=== PATIENT | female | born 1980 | race Caucasian/White ===

== ENCOUNTER 2017-12-02 01:20 | Emergency (ER) | payer SELFPAY ==
[~2017-12-02] VITALS: Ht 67 cm; Wt 110.0 kg
[~2017-12-02 01:20] MED LIST: LEVOXYL0.125 MG PO; NO HOME MEDICATIONS; NORCO 325 MG-7.1 TAB PO
[2017-12-02 01:22] VITALS: TEMP 97.1
[2017-12-02] MEDS ORDERED: HCTZ12.5TAB PO (01:32)
[2017-12-02] MEDS ORDERED: LIPITOR 40MG TA40 MG PO (01:32)
[2017-12-02 02:11] LABS: BASO % 0.2 % (0.0-2.0); EOS # 0.1 (0.0-0.7); EOS % 0.9 % (0-4.0); GRAN # 11.3 (1.4-6.5); GRAN % 79.5 % (42.2-75.2); HEMATOCRIT 38.7 % (37.0-47.0); HEMOGLOBIN 13.6 g/dl (12.5-16.0); LYMPH # 1.9 (1.2-3.4); LYMPH % 13.6 % (20.0-51.0); MEAN CELL VOLUME 87 fl (80.0-100.0); MEAN CORPUSCULAR HEMOGLOBIN 31 pg (27.0-31.0); MEAN CORPUSCULAR HGB CONC 35 g/dl (33.0-37.0); MEAN PLATELET VOLUME 9.7 fl (7.4-10.4); MONO # 0.7 (0.1-0.6); PLATELET COUNT 299 K/mm3 (130-400); RED BLOOD COUNT 4.45 M/mm3 (4.10-5.30); REDCELL DISTRIBUTION WIDTH-CV 11.9 % (11.5-14.5)
[2017-12-02 02:21] LABS: ALANINE AMINOTRANSFERASE 38 U/L (9-52); ALBUMIN 4.1 gm/dL (3.5-5.0); ALKALINE PHOSPHATASE 71 U/L (50-136); ANION GAP 13 mmol/L (7-16); AST,SGOT 20 U/L (15-37); BILIRUBIN,TOTAL 0.4 mg/dL (0.0-1.0); BLOOD UREA NITROGEN 17 mg/dL (7-17); CALCIUM 9.5 mg/dL (8.4-10.2); CARBON DIOXIDE 24 mmol/L (22-30); CHLORIDE 103 mmol/L (98-107); CREATININE, serum 0.78 mg/dL (0.52-1.25); GLUCOSE 123 mg/dL (74-106); LIPASE 34 U/L (23-300); POTASSIUM 3.4 mmol/L (3.4-5.0); SODIUM 140 mmol/L (137-145); TOTAL PROTEIN 6.9 gm/dL (6.4-8.2)
[2017-12-02 02:22] LABS: COLLECTION METHOD CLEAN CATCH
[2017-12-02 02:33] LABS: MUCOUS Present /lpf; PH 6 (5-8); URINE APPEARANCE Hazy; URINE BACTERIA None Seen /hpf; URINE BILIRUBIN Negative (NEGATIVE); URINE BLOOD Negative (NEGATIVE); URINE COLOR Yellow; URINE GLUCOSE Negative (NEGATIVE); URINE KETONE Trace (NEGATIVE); URINE LEUKOCYTE ESTERASE Negative (NEGATIVE); URINE NITRATE Negative (NEGATIVE); URINE PROTEIN(semi-quant) 1+ (NEGATIVE); URINE RBC 0-2 /hpf
[2017-12-02 03:19] LABS: C-REACTIVE PROTEIN < 0.5 mg/dL (0.0-0.9)
[2017-12-02 03:42] VITALS: BP 107/54; PULSE 59
== END 2017-12-02 03:45 | disposition home or self-care (01) ==
LOC: COL.ER 01:20
PROVIDERS: Nurse Practitioner
DX: R10.30 Lower abdominal pain, unspecified (principal); E78.5 Hyperlipidemia, unspecified; I10 Essential (primary) hypertension; Z90.89 Acquired absence of other organs
CPT/HCPCS: J2060; J2405; J7030

== ENCOUNTER 2018-01-27 06:38 | Day surgery (SDC) | payer OTHER ==
[~2018-01-27] VITALS: Ht 167.6 cm; Wt 104.8 kg
[~2018-01-27 06:38] MED LIST changes: +HCTZ12.5TAB PO; +LIPITOR 40MG TA40 MG PO
[2018-01-27 07:18] VITALS: BP 151/77; PULSE 80; TEMP 97.7
[2018-01-27 11:55] VITALS: BP 135/78; PULSE 76; TEMP 97.8
[2018-01-27 12:10] VITALS: BP 144/84; PULSE 78
[2018-01-27] MEDS ORDERED: PHENERGAN 25 TA25 MG PO (12:14)
[2018-01-27] MEDS ORDERED: LEVAQUIN 5500 MG/TA1 PO (12:14)
[2018-01-27 12:21] VITALS: TEMP 97.5
[2018-01-27 12:25] VITALS: BP 135/82; PULSE 83
[2018-01-27 12:40] VITALS: BP 112/66; BP 122/66; PULSE 61; PULSE 62
== END 2018-01-27 13:58 | disposition home or self-care (01) ==
LOC: SDCO 06:38
DX: M93.271 Osteochondritis dissecans, right ankle and joints of right foot (principal); E78.00 Pure hypercholesterolemia, unspecified; E07.9 Disorder of thyroid, unspecified; Z79.899 Other long term (current) drug therapy
CPT/HCPCS: C1713; J1100; J2250; J2405; J2704; J2765; J2795; J3010; J7120